=== PATIENT | male | born 1950 ===

== ENCOUNTER 2023-07-09 06:10 | Day surgery (SDC) | payer OTHER, SELFPAY ==
--- NOTE | 2023-06-29 13:47 | HP.FOC2 ---
Focused History & Physical
Chief Complaint
HPI:
Chief Complaint: LEFT shoulder soft tissue mass
HPI / Indication for Planned Procedure:
Patient is a 72 yo M with a PMH notable for a recurrent LEFT shoulder soft tissue mass. Multiple incisions are outside hospital. Plan for excision of a soft tissue mass of the LEFT shoulder. No changes in clinical history from last clinic
appointment.
Relevant Past Medical History: Other (Recurrent LEFT shoulder mass)
Relevant Social History: Negative
Relevant Family History: Negative
Relevant Past Surgical History: Positive for (Multiple incisions of LEFT shoulder soft tissue mass)
Review of Systems
Review of Pertinent Systems: All Systems Negative
Medication
See Medication form for detailed medications: Yes
Medication List (including Herbals & OTC):
chlorthalidone 25 mg tablet 12.5 mg PO DAILY 02/15/23
lisinopril 20 mg tablet 20 mg PO DAILY 02/15/23
multivitamin 1 tab PO DAILY 02/15/23
rosuvastatin 20 mg tablet (Crestor) 20 mg PO QPM 02/15/23
acetaminophen 325 mg tablet 650 mg PO Q4HPRN PRN mild pain #1 tab 02/19/23
ibuprofen 200 mg tablet 400 - 600 mg PO Q6HPRN PRN moderate pain #1 tab 02/19/23
tramadol 50 mg tablet 50 mg PO Q6HPRN PRN severe pain/breakthrough pain #7 tabs 02/19/23
Allergies and Reactions
Patient has Allergies: No
Noted Allergies and Reactions:
Allergy/AdvReac Type Severity Reaction Status Date / Time
No Known Allergies Allergy Verified 02/19/23 07:45
Pertinent Physical Exam
All Other Systems: Negative
Lungs: Normal
Heart: Normal
Abdomen: Normal
Extremities: Other (LEFT shoulder mass)
Diagnosis / Assessment
LEFT shoulder soft tissue mass, chronic abscess
Plan / Procedure
Excision of LEFT shoulder soft tissue mass, chronic abscess
Anesthesia/Sedation to be done by Anesthesia Provider: Yes
[2023-07-09 06:10] VITALS: BMI 23.4
[2023-07-09 06:20] VITALS: BP 207/125
[2023-07-09 06:30] VITALS: BMI 23.4
[2023-07-09] MEDS: TYLENOL 1000 MG PO (06:31)
[2023-07-09] MEDS: NORMOSOL-R 1000 IV (06:35)
[2023-07-09 06:40] VITALS: BP 172/108
[2023-07-09 08:05] VITALS: BP 125/85
[2023-07-09 08:15] VITALS: BP 131/70
[2023-07-09 08:30] VITALS: BP 148/93
[2023-07-09 08:45] VITALS: BP 143/98
== END 2023-07-09 09:05 | disposition home or self-care (01) ==
LOC: SDS 06:10
PROVIDERS: ATTENDING PHYSICIAN Surgery
DX: L72.0 Epidermal cyst (principal); R22.32 Localized swelling, mass and lump, left upper limb; L90.5 Scar conditions and fibrosis of skin; Z87.2 Personal history of diseases of the skin and subcutaneous tissue
CPT/HCPCS: 23075; 88304